=== PATIENT | male | born 1990 | race Two or more races ===

== ENCOUNTER 2025-02-05 15:59 | Emergency (ER) | payer OTHER ==
[~2025-02-05] VITALS: Ht 162.6 cm; Wt 70.3 kg
[2025-02-05] MEDS ORDERED: METHYLPREDNISOLONE SOD SUCC 125 MG VIAL IV ONE (17:30)
[2025-02-05] MEDS ORDERED: HYDROCODONE/CHLORPHEN P-STIREX 5 ML ML PO ONE (17:30)
[2025-02-05] MEDS ORDERED: IPRATROPIUM BROMIDE 0.5 MG/2.5 ML AMPUL.NEB IH SCH (17:30)
[2025-02-05] MEDS ORDERED: ALBUTEROL SULFATE 0.5 ML/2.5 MG SOLUTION IH SCH (17:30)
[2025-02-05] MEDS ORDERED: 0.9 % SODIUM CHLORIDE 500 ML IV ONE (17:30)
[2025-02-05] MEDS ORDERED: FAMOTIDINE/PF 20 MG in 0.9 % SODIUM CHLORIDE 8 ML IV PUSH ONE (17:30)
[2025-02-05 18:00] LABS: BASO % 0.6 % (0.1-1.2); EOS # 0.58 (0.04-0.54); EOS % 4.1 % (0.7-7.0); LYMPH # 2.55 (1.18-3.74); LYMPH % 18.0 % (19.3-53.1); MEAN PLATELET VOLUME 10.20 fl (9.4-12.4); MONO # 0.88 (0.24-0.82); MONO % 6.2 % (4.7-12.5); NEUT # 10.01 (1.56-6.13); NEUT % 70.7 % (34.0-71.1); RED CELL DISTRIBUTION WIDTH 12.5 % (11.6-14.4)
[2025-02-05 18:23] LABS: ALT/SGPT 39.0 U/L (12-78); AST/SGOT 22.0 U/L (15-37); BILIRUBIN TOTAL 0.68 mg/dL (0.3-1.2); BUN CREA RATIO 10.0 (7.0-25.0); CREATININE SERUM 1.03 mg/dL (0.70-1.30); GFR 82.67; GLOBULINA 4.2 G/DL (2.4-3.5); GLUCOSE FASTING 99.0 mg/dL (65-100); OSMOLALITY SERUM 282.0 MOSM/KG (275-295)
[2025-02-05 19:42] LABS: COVID-19 AG NEGATIVE (NEGATIVE)
[2025-02-05] MEDS ORDERED: SINGULAIR10 MG PO (21:20)
[2025-02-05] MEDS ORDERED: ZITHROMAX TRI-500 MG PO (21:20)
[2025-02-05] MEDS ORDERED: IPRAT-ALBUT 0.5-3 ML IH (21:20)
[2025-02-05] MEDS ORDERED: MUCINEX DM ER1 EAC1 PO (21:20)
== END 2025-02-05 22:13 | disposition home or self-care (01) ==
LOC: ER 15:59
PROVIDERS: General Practice
DX: J40 Bronchitis, not specified as acute or chronic (principal); B34.9 Viral infection, unspecified; Z20.822 Contact with and (suspected) exposure to COVID-19

== ENCOUNTER 2025-02-14 00:44 | Emergency (ER) | payer OTHER ==
[~2025-02-14] VITALS: Ht 162.6 cm; Wt 70.3 kg
[~2025-02-14 00:44] MED LIST: IPRAT-ALBUT 0.5-3 ML IH; MUCINEX DM ER1 EAC1 PO; SINGULAIR10 MG PO; ZITHROMAX TRI-500 MG PO
[2025-02-14] MEDS ORDERED: PROMETHAZINE HCL 50 MG/ML AMPUL IM STA (02:04)
[2025-02-14] MEDS ORDERED: FAMOtidine 10 MG/ML (4ML VIAL) IV PUSH STA (02:05)
[2025-02-14] MEDS ORDERED: SODIUM CL 0.9% 25 ML IV.SOLN. IV STA (02:06)
[2025-02-14] MEDS ORDERED: FAMOTIDINE/PF 20 MG/2 ML VIAL ONE (02:26)
[2025-02-14] MEDS ORDERED: PROMETHAZINE HCL 50 MG/ML AMPUL IM ONE (02:26)
[2025-02-14 03:21] LABS: URINE APPEARANCE Clear; URINE BILIRRUBIN Small (NEGATIVE); URINE BLOOD Negative; URINE COLOR Dark Yellow; URINE GLUCOSE Negative (NEGATIVE); URINE KETONE Trace (NEGATIVE); URINE LEUKOCYTE Trace; URINE NITRATE Negative; URINE PROTEIN 30 (NEGATIVE); URINE UROBILINOGEN 1.0 E.U./dl
[2025-02-14 03:25] LABS: URINE BACTERIA 7.1 uL (0.0-1933); URINE CAST 1.90 uL (0.0-1.40); URINE EPITHELIAL CELLS 6.1 uL (0.0-38.8); URINE RBC 3.8 uL (0.0-20.8); URINE WBC 7.2 uL (0.0-23.2)
[2025-02-14 03:59] LABS: BASO % 0.2 % (0.1-1.2); EOS # 0.01 (0.04-0.54); EOS % 0.1 % (0.7-7.0); LYMPH # 0.41 (1.18-3.74); LYMPH % 2.1 % (19.3-53.1); MEAN PLATELET VOLUME 10.30 fl (9.4-12.4); MONO # 0.47 (0.24-0.82); MONO % 2.4 % (4.7-12.5); NEUT # 18.74 (1.56-6.13); NEUT % 94.6 % (34.0-71.1); RED CELL DISTRIBUTION WIDTH 12.7 % (11.6-14.4)
[2025-02-14 04:15] LABS: BUN CREA RATIO 14.0 (7.0-25.0); CREATININE SERUM 1.22 mg/dL (0.70-1.30); GFR 68.0; GLUCOSE FASTING 144.0 mg/dL (65-100); OSMOLALITY SERUM 282.0 MOSM/KG (275-295)
== END 2025-02-14 05:25 | disposition home or self-care (01) ==
LOC: ER 00:44
PROVIDERS: General Practice
DX: K52.89 Other specified noninfective gastroenteritis and colitis (principal)